=== PATIENT | female | born 1980 | race Caucasian/White ===

== ENCOUNTER 2025-05-27 18:43 | Emergency (ER) | payer MEDICAID ==
[2025-05-27] MEDS ORDERED: LEVETIRACETAM 1,000MG in NACL 100ML PREMIX IV SCH (19:15)
[2025-05-27] MEDS: LEVETIRACETAM 1000MG PREMIX 100 ML IV SCH (20:11)
[2025-05-27 20:23] VITALS: BP 119/69; PULSE 79; RESP 13; TEMP 36.7; O2SAT 99
== END 2025-05-27 20:54 | disposition home or self-care (01) ==
LOC: ER 18:43
DX: G40.909 Epilepsy, unspecified, not intractable, without status epilepticus (principal); Z88.5 Allergy status to narcotic agent
CPT/HCPCS: 99284; 96365; J1953